=== PATIENT | male | born 1945 | race Caucasian/White ===

== ENCOUNTER → 2018-04-29 | Outpatient (CLI) | payer MEDICARE ==
[~2018-04-29] MED LIST: ANORO ELLIPTA1 EACH INH; ASPI81CH PO; FISH OIL 1,2001 EACH PO; Glyburide-Metf1 EAC2 PO; METF500 PO; PIOG15 PO; Prinivil10 MG PO
== END | disposition home or self-care (01) ==
LOC: PLD 13:50 → LAB SHORT 13:50
DX: L82.1 Other seborrheic keratosis (principal); L57.0 Actinic keratosis
CPT/HCPCS: 88305

== ENCOUNTER → 2018-09-21 | Outpatient (CLI) | payer MEDICARE | END | disposition home or self-care (01) | LOC: LAB SRC 09:55 → LAB SHORT 09:55 | DX: E11.42 Type 2 diabetes mellitus with diabetic polyneuropathy (principal) | CPT/HCPCS: 82043 ==

== ENCOUNTER → 2018-10-13 | Outpatient (CLI) | payer MEDICARE | END | disposition home or self-care (01) | LOC: LAB SHORT 08:35 → PLD 08:35 | DX: L98.8 Other specified disorders of the skin and subcutaneous tissue (principal) | CPT/HCPCS: 88305; 88312 ==

== ENCOUNTER 2019-02-22 08:36 | Day surgery (SDC) | payer MEDICARE | END 2019-02-22 22:55 | disposition home or self-care (01) | LOC: US 08:36 | DX: C77.4 Secondary and unspecified malignant neoplasm of inguinal and lower limb lymph nodes (principal); Z51.81 Encounter for therapeutic drug level monitoring; I10 Essential (primary) hypertension; R91.1 Solitary pulmonary nodule; I35.9 Nonrheumatic aortic valve disorder, unspecified; I70.209 Unspecified atherosclerosis of native arteries of extremities, unspecified extremity; D75.1 Secondary polycythemia; Z79.899 Other long term (current) drug therapy | CPT/HCPCS: 36415; 38505; 76942; 85610; 85730; 88305 ==

== ENCOUNTER → 2020-01-14 | Outpatient (CLI) | payer MEDICARE | END | disposition home or self-care (01) | LOC: LAB 09:00 → LAB FUT 01-12 15:25 → LAB SHORT 01-12 15:25 | DX: E11.59 Type 2 diabetes mellitus with other circulatory complications (principal) | CPT/HCPCS: 82043 ==

== ENCOUNTER → 2020-10-09 | Outpatient (CLI) | payer MEDICARE | LOC: LAB SHORT 10:53 → LAB 10:53 | DX: D48.5 Neoplasm of uncertain behavior of skin (principal); Z88.8 Allergy status to other drugs, medicaments and biological substances | CPT/HCPCS: 88305 ==

== ENCOUNTER → 2021-04-23 | Outpatient (CLI) | payer MEDICARE | END | disposition home or self-care (01) | LOC: LAB SHORT 07:44 → LAB 07:44 | DX: C44.529 Squamous cell carcinoma of skin of other part of trunk (principal); D48.5 Neoplasm of uncertain behavior of skin | CPT/HCPCS: 88305 ==

== ENCOUNTER → 2021-07-18 | Outpatient (CLI) | payer MEDICARE | END | disposition home or self-care (01) | LOC: LAB 14:58 → LAB SHORT 14:58 | DX: L82.1 Other seborrheic keratosis (principal) | CPT/HCPCS: 88305 ==

== ENCOUNTER → 2023-01-20 | Emergency (ER) | payer MEDICARE, OTHER ==
[~2023-01-20] VITALS: Ht 177.8 cm; Wt 86.2 kg
[~2023-01-20] MED LIST changes: +GLYBURIDE5 M2 PO; +LISI5 PO; +TRULICITY0.75 MG/01 SC; +VARDENAFIL HCL20 MG PO
[2023-01-20 14:30] LABS: BASOPHILS ABSOLUTE AUTO 0.03 K/mm3 (0.00-0.23); BASOPHILS PERCENT AUTO 0 % (0-2); EOSINOPHILS ABSOLUTE AUTO 0.16 K/mm3 (0.00-0.68); EOSINOPHILS PERCENT AUTO 2 % (0-6); Hematocrit 42.7 % (37.0-53.0); Hemoglobin 14.4 g/dL (13.5-17.5); IMMATURE GRAN ABSOLUTE AUTO 0.06 K/mm3 (0.00-0.10); IMMATURE GRAN PERCENT AUTO 1 % (0-1); LYMPHOCYTES ABSOLUTE AUTO 1.02 K/mm3 (0.84-5.20); LYMPHOCYTES PERCENT AUTO 12 % (21-46); MONOCYTES ABSOLUTE AUTO 0.59 K/mm3 (0.16-1.47); MONOCYTES PERCENT AUTO 7 % (4-13); Mean Corpuscular HGB 30.2 pg (26.0-34.0); Mean Corpuscular HGB Conc 33.7 g/dL (31.5-36.5); Mean Corpuscular Volume 90 fL (80-100); Mean Platelet Volume 9.3 fL (9.1-12.4); NEUTROPHILS PERCENT AUTO 79 % (41-73); NRBC ABSOLUTE 0.02 K/mm3 (0.00-0.02); NRBC Auto 0.2 /100 WBC (0.0-0.2); Platelet Count 183 K/mm3 (150-400); RDW Standard Deviation 46.1 fL (35.1-46.3); Red Blood Cell Count 4.77 M/mm3 (4.30-5.90); White Blood Cell Count 8.66 K/mm3 (4.00-11.30)
[2023-01-20 14:39] LABS: Albumin, Blood 3.7 g/dL (3.4-5.0); Albumin/Globulin Ratio 1.1 (0.8-1.8); Bilirubin, Total 0.4 mg/dL (0.1-1.0); Calcium, Blood 9.5 mg/dL (8.5-10.1); Creatinine, Blood 1.05 mg/dL (0.60-1.20); Globulin, Blood 3.3 g/dL (2.2-4.0); Potassium, Blood 4.5 mmol/L (3.5-5.5)
[2023-01-20 15:41] VITALS: BP 110/55
== END ==
LOC: ER 13:47
PROVIDERS: Student in an Organized Health Care Education/Training Program
DX: G45.9 Transient cerebral ischemic attack, unspecified (principal); I95.9 Hypotension, unspecified; R42 Dizziness and giddiness; F17.210 Nicotine dependence, cigarettes, uncomplicated; Z79.82 Long term (current) use of aspirin; Z79.899 Other long term (current) drug therapy
CPT/HCPCS: 70450; 80053; 85025; 99284-25

== ENCOUNTER → 2023-03-25 | Outpatient (CLI) | payer MEDICARE, OTHER | END | disposition home or self-care (01) | LOC: PLD 07:42 → LAB SHORT 07:42 | DX: D48.5 Neoplasm of uncertain behavior of skin (principal) | CPT/HCPCS: 88305 ==

== ENCOUNTER 2023-08-01 12:10 | Emergency (ER) | payer MEDICARE, OTHER ==
[~2023-08-01] VITALS: Ht 175.3 cm; Wt 84.8 kg
[2023-08-01 12:24] VITALS: BP 137/83
[2023-08-01] MEDS ORDERED: CEPHALEXIN500 MG PO (15:08)
== END 2023-08-01 15:25 | disposition home or self-care (01) ==
LOC: ER 12:10
DX: L03.116 Cellulitis of left lower limb (principal); E11.9 Type 2 diabetes mellitus without complications; Z85.72 Personal history of non-Hodgkin lymphomas; F17.210 Nicotine dependence, cigarettes, uncomplicated; Z79.84 Long term (current) use of oral hypoglycemic drugs; Z79.82 Long term (current) use of aspirin; Z79.899 Other long term (current) drug therapy; Z88.8 Allergy status to other drugs, medicaments and biological substances
CPT/HCPCS: 93971; 99283-25

== ENCOUNTER → 2023-08-21 | Outpatient (CLI) | payer MEDICARE, OTHER ==
[~2023-08-21] MED LIST changes: +CEPHALEXIN500 MG PO
== END ==
LOC: LAB 18:00 → LAB SHORT 18:00
DX: L60.2 Onychogryphosis (principal); B35.1 Tinea unguium
CPT/HCPCS: 87210

== ENCOUNTER → 2024-10-04 | Outpatient (CLI) | payer MEDICARE, OTHER | END | disposition home or self-care (01) | LOC: LAB 17:29 → LAB SHORT 17:29 | DX: L60.2 Onychogryphosis (principal); L30.9 Dermatitis, unspecified; B35.1 Tinea unguium | CPT/HCPCS: 87220 ==

== ENCOUNTER 2025-07-31 17:01 | Emergency (ER) | payer MEDICARE, OTHER ==
[~2025-07-31] VITALS: Ht 175.3 cm; Wt 76.7 kg
[~2025-07-31 17:01] MED LIST changes: +ASPI325 PO; +CELE200 PO; +FISH OIL 1,0001 EA10 PO; -FISH OIL 1,2001 EACH PO; +FURO40 PO; +Isosorbide Mono30 MG PO; +JARDIANCE10 MG PO; +KETOROLAC TROMET3 ML BOTHEYES; +LOTEPREDNOL ETA10 ML BOTHEYES; +NITR.4SL SL; +PRED FORTE5 ML BOTHEYES; +SUPER B-50 COM1 EACH PO; +TAMS.4ER PO; +TRAZ50 PO; +TRELEGY ELLIPT1 EAC1 INH; +Triamcinolone A15 G2 TOP
[2025-07-31 17:11] VITALS: BP 119/51
[2025-07-31] MEDS ORDERED: Voltaren100 GM TOP (18:52)
== END 2025-07-31 19:30 | disposition home or self-care (01) ==
LOC: ER 17:01
DX: S76.911A Strain of unspecified muscles, fascia and tendons at thigh level, right thigh, initial encounter (principal); W18.30XA Fall on same level, unspecified, initial encounter; I10 Essential (primary) hypertension; E11.9 Type 2 diabetes mellitus without complications; E78.5 Hyperlipidemia, unspecified; F17.210 Nicotine dependence, cigarettes, uncomplicated; Z88.8 Allergy status to other drugs, medicaments and biological substances; Z79.82 Long term (current) use of aspirin; Z79.84 Long term (current) use of oral hypoglycemic drugs; Z79.899 Other long term (current) drug therapy
CPT/HCPCS: 73562-RT; 99283-25